=== PATIENT | female | born 1990 | race Two or more races ===

== ENCOUNTER 2022-09-03 15:56 | Observation (INO) | payer MEDICAID | END 2022-09-03 17:54 | disposition home or self-care (01) | LOC: UNDOADMOB 15:56 → LDRP 15:56 → UNDODISOB 17:54 | PROVIDERS: ADMIT Obstetrics & Gynecology; ATTEND Obstetrics & Gynecology | DX: O36.5930 Maternal care for other known or suspected poor fetal growth, third trimester, not applicable or unspecified (principal); O26.893 Other specified pregnancy related conditions, third trimester; N89.8 Other specified noninflammatory disorders of vagina; Z3A.38 38 weeks gestation of pregnancy | CPT/HCPCS: 59025; 76818; 81002; 94760; G0378 ==

== ENCOUNTER 2022-09-05 11:00 | Observation (INO) | payer MEDICAID ==
[2022-09-05] MEDS ORDERED: PREN-96 PO (11:37)
== END 2022-09-05 12:40 | disposition home or self-care (01) ==
LOC: LDRP 11:00
PROVIDERS: ADMIT Obstetrics & Gynecology; ATTEND Obstetrics & Gynecology
DX: O36.5930 Maternal care for other known or suspected poor fetal growth, third trimester, not applicable or unspecified (principal); Z3A.39 39 weeks gestation of pregnancy
CPT/HCPCS: 59025; 76818; 81002; 94760; G0378

== ENCOUNTER 2022-09-07 15:25 | Observation (INO) | payer MEDICAID ==
[~2022-09-07 15:25] MED LIST: PREN-96 PO
== END 2022-09-07 18:12 | disposition home or self-care (01) ==
LOC: UNDOADMOB 15:25 → LDRP 15:25 → UNDODISOB 18:12
PROVIDERS: ADMIT Obstetrics & Gynecology; ATTEND Obstetrics & Gynecology
DX: O60.03 Preterm labor without delivery, third trimester (principal); Z3A.39 39 weeks gestation of pregnancy
CPT/HCPCS: 59025; 81002; 94760; G0378

== ENCOUNTER 2022-09-08 07:01 | Inpatient (IN) | payer MEDICAID ==
[~2022-09-08] VITALS: Ht 165.1 cm; Wt 95.7 kg
[2022-09-08] MEDS ORDERED: DERMOPLAST 60ML BOTTLE TOP PRN (07:15)
[2022-09-08] MEDS ORDERED: LACT. RINGERS/OXYTOCIN 20UNITS 500 ML IV ONE ×2 (07:15→07:45)
[2022-09-08] MEDS ORDERED: BUTORPHANOL TARTRATE 2 MG/1 ML VIAL IV PRN ×2 (07:15)
[2022-09-08] MEDS ORDERED: WITCH HAZEL-GLYCERIN PAD TOP PRN (07:15)
[2022-09-08] MEDS ORDERED: LIDOCAINE 2%HCL (LOCAL ANESTH.) INJ 20ML MDV IJ PRN (07:15)
[2022-09-08] MEDS ORDERED: PHISODERM TOP SOLN 240ML BTL TOP PRN (07:15)
[2022-09-08] MEDS ORDERED: PROMETHAZINE HCL 25 MG/ML 1ML IV PRN (07:15)
[2022-09-08 08:08] LABS: Basophils # (auto) 0 10 ^3/uL (0-0.2); Basophils % (auto) 0.1 % (0.0-2.0); Eosinophils # (auto) 0.1 10 ^3/uL (0-0.8); Eosinophils % (auto) 0.9 % (0.0-7.0); Hematocrit 33.1 % (36.0-46.0); Hemoglobin 11.1 g/dL (12.2-16.2); Lymphocytes # (auto) 1.6 10 ^3/uL (0.4-5.4); Lymphocytes % (auto) 19.6 % (10.0-50.0); Mean Corpuscular Hemoglobin 29.9 pg (28.0-32.0); Mean Corpuscular Hgb Conc. 33.6 g/dL (32.0-36.0); Mean Corpuscular Volume 89.1 fL (80.0-100.0); Monocytes # (auto) 0.6 10 ^3/uL (0-1.3); Monocytes % (auto) 7.5 % (0.0-12.0); Neutrophils # (auto) 5.8 10 ^3/uL (1.6-8.6); Neutrophils % (auto) 71.9 % (37.0-80.0); Nucleated Red Blood Cells % 0.1 %; Red Blood Cells 3.71 10^6/uL (4.0-5.20); Red Cell Distribution Width 13.5 % (11.8-14.3)
[2022-09-08 08:18] LABS: Urine Bacteria NONE SEEN /hpf (None Seen); Urine Blood 3+ /uL (Negative); Urine Mucus FEW (None Seen); Urine Specific Gravity 1.031 (1.001-1.035); Urine WBC 38 /hpf (0 - 5)
[2022-09-08 08:20] LABS: INR 0.87 (0.9-1.15)
[2022-09-08 08:22] LABS: Albumin 2.7 g/dL (3.4-5.0); Calcium 8.6 mg/dL (8.5-10.1); Potassium 3.8 mmol/L (3.5-5.1)
[2022-09-08 08:26] LABS: BUN/Creatinine Ratio 14.3; Bilirubin, Total 0.5 mg/dL (0.2-1.0); Total Protein 6.9 g/dL (6.4-8.2)
[2022-09-08] MEDS: miSOPROStol 50 MCG per PRE-CUT 1/2 TAB PO PRN ×2 (08:31→12:28)
[2022-09-08] MEDS: LACTATED RINGER'S 1,000 ML IV SCH ×3 (08:32→14:34)
[2022-09-08 08:33] LABS: Alcohol, Urine < 3.0 mg/dL (0-10); Amphetamine Screen, Urine NEGATIVE (NEGATIVE); Barbiturate Scree,Urine NEGATIVE (NEGATIVE); Benzodiazephine Screen, Urine NEGATIVE (NEGATIVE); Cannabinoid Screen, Urine NEGATIVE (NEGATIVE); Cocaine Screen, Urine NEGATIVE (NEGATIVE); Opiate Scree,Urine NEGATIVE (NEGATIVE); Phencyclidine Screen, Urine NEGATIVE (NEGATIVE)
[2022-09-08] MEDS ORDERED: LACTATED RINGER'S 1,000 ML IV ONE (13:45)
[2022-09-08] MEDS ORDERED: ePHEDrine SULFATE 50 MG/ML AMP IV ONE (13:45)
[2022-09-08] MEDS ORDERED: ROPIVACAINE HCL 200 ML EPI SCH (13:45)
[2022-09-08] MEDS ORDERED: NALOXONE HCL 0.4 MG/ML VIAL IV ONE (13:45)
[2022-09-08] MEDS ORDERED: METHYLERGONOVINE MALEATE 0.2 MG/ML AMP IM ONE (15:15)
[2022-09-08] MEDS ORDERED: LACT. RINGERS/OXYTOCIN 20UNITS 1,000 ML IV SCH (15:15)
[2022-09-08] MEDS ORDERED: miSOPROStol 100 mcg TAB PR PRN (15:15)
[2022-09-08] MEDS ORDERED: IBUPROFEN 600 MG TAB PO PRN (16:30)
[2022-09-08] MEDS ORDERED: ONDANSETRON ODT 4 MG TAB PO PRN (16:30)
[2022-09-08] MEDS ORDERED: ACETAMINOPHEN 325 MG TAB PO PRN (16:30)
[2022-09-08 19:00] VITALS: BP 127/63
[2022-09-08 23:00] VITALS: BP 123/71
[2022-09-09 03:00] VITALS: BP 116/71
[2022-09-09 06:50] VITALS: BP 124/81
[2022-09-09 07:07] LABS: RPR Non Reactive (Non Reactive)
[2022-09-09] MEDS ORDERED: TETANUS-DIPTH-ACEL PERTUSSIS 0.5ML SYR Tdap IM ONE (07:30)
[2022-09-09 10:45] VITALS: BP 116/76
[2022-09-09 14:58] VITALS: BP 126/70
[2022-09-09 18:40] VITALS: BP 121/79
== END 2022-09-09 21:00 | disposition home or self-care (01) | DRG 560 ==
LOC: LDRP 07:01
PROVIDERS: ADMIT Obstetrics & Gynecology; ATTEND Obstetrics & Gynecology
PROC: 10E0XZZ Delivery of Products of Conception, External Approach (ICD-10-PCS; principal; 2022-09-08)
PROC: 0KQM0ZZ Repair Perineum Muscle, Open Approach (ICD-10-PCS; 2022-09-08)
PROC: 3E0R3BZ Introduction of Anesthetic Agent into Spinal Canal, Percutaneous Approach (ICD-10-PCS; 2022-09-08)
PROC: 00HU33Z Insertion of Infusion Device into Spinal Canal, Percutaneous Approach (ICD-10-PCS; 2022-09-08)
PROC: 3E0P7VZ Introduction of Hormone into Female Reproductive, Via Natural or Artificial Opening (ICD-10-PCS; 2022-09-08)
PROC: 3E0DXGC Introduction of Other Therapeutic Substance into Mouth and Pharynx, External Approach (ICD-10-PCS; 2022-09-08)
DX: O69.81X0 Labor and delivery complicated by cord around neck, without compression, not applicable or unspecified (principal); Z37.0 Single live birth; O36.5930 Maternal care for other known or suspected poor fetal growth, third trimester, not applicable or unspecified; O70.1 Second degree perineal laceration during delivery; Z3A.39 39 weeks gestation of pregnancy; Z20.822 Contact with and (suspected) exposure to COVID-19
CPT/HCPCS: 36415; 59025; 62282; 80053; 80307; 81001; 81002; 85025; 85610; 85730; 86592; 86850; 86900; 86901; 87426; 90715; 94760; 96360; 96361; 96365; 96366; 96372; G0378; J2590